=== PATIENT | female | born 1995 | race African-American/Black ===

== ENCOUNTER 2022-12-10 17:25 | Emergency (ER) | payer MEDICAID, SELFPAY ==
[2022-12-10] MEDS ORDERED: Acetaminophen 500 MG TAB ONE (18:17)
== END 2022-12-10 19:00 | disposition home or self-care (01) ==
LOC: CSHERS 17:25
DX: J02.9 Acute pharyngitis, unspecified (principal); M25.531 Pain in right wrist; F17.210 Nicotine dependence, cigarettes, uncomplicated
CPT/HCPCS: 87081; 87430